=== PATIENT | female | born 1950 | race Caucasian/White ===

== ENCOUNTER 2016-10-31 20:12 | Emergency (ER) | payer MEDICARE, OTHER ==
[~2016-10-31] VITALS: Ht 157.5 cm; Wt 72.7 kg
[~2016-10-31 20:12] MED LIST: AMLO5TAB2 PO; ASPI-628 PO; ATEN25TA PO; CALC-696 PO; CHOL400T PO; CYAN500 PO; GABA100C PO; HYDR-4003 PO; NITR0.4T6 SL; OXYB5TAB10 PO; SIMV20TA4 PO; ZOLP5TAB6 PO
[2016-10-31 20:20] VITALS: BP 127/55; PULSE 80; RESP 22; O2SAT 97
[2016-10-31 20:37] LABS: Mean Corpuscular Volume 92 fL (81-100)
[2016-10-31 20:38] LABS: BASOPHILS % (AUTO) 0 % (0-3); EOSINOPHILS % (AUTO) 1 % (0-5); MONOCYTES % (AUTO) 10 % (4-12); Mean Corpuscular Hemoglobin 30.7 pg (27.0-35.0); NEUTROPHILS % (AUTO) 53 % (40-74); Platelet Count 201 bil/L (150-400)
--- NOTE | 2016-10-31 21:06 | ED.REPORT ---
HPI-Chest Pain 40 and Over Date of Service Oct 31, 2016 ED Provider: Justin Hickey MD Pt is a 66 y/o female with a history of hyperlipidemia, hypertension, and esophageal spasms who presents to the ED via EMS c/o pain under her ribs onset this evening. She describes her pain as "aching' and "burning" that does not radiate. Additional symptoms include mild SOB. She denies nausea, vomiting, constipation, dysuria, difficulty urinating, diarrhea, fever, or cough. She ate two hours prior to arrival, and took two nitro without relief in symptoms. Nursing Notes Stated Complaint: RIB PAIN Chief Complaint: Chest Pain Nursing Notes Reviewed: Yes Allergies: Coded Allergies: quinine (Verified Allergy, Unknown, SEVERE RASH, 09/05/15) thimerosal (Verified Allergy, Unknown, RASH, 09/05/15) Scheduled Amlodipine (Amlodipine) 5 Mg Tablet 2.5 MG PO DAILY Aspirin (Aspir 81) 81 Mg Tablet.dr 81 MG PO DAILY Atenolol (Atenolol) 25 Mg Tablet 12.5 MG PO DAILY Calcium Citrate/Vitamin D2 (Erasto-Citrate Plus Vitamin D Tab) 1 Each Tablet 1 EACH PO AM Cholecalciferol (Vitamin D3) (Vitamin D3) 400 Unit Tablet 400 UNIT PO BID Cyanocobalamin (Vitamin B12) 500 Mcg Tablet 1,000 MCG PO DAILY Gabapentin (Neurontin) 100 Mg Capsule 100 MG PO DAILY 1 pill by mouth daily 3 days then 1 pill by mouth twice a day 3 days then 1 pill by mouth 3 times a day Oxybutynin Chloride (Oxybutynin Chloride) 5 Mg Tablet 5 MG PO BID Simvastatin (Simvastatin) 20 Mg Tablet 20 MG PO HS Scheduled PRN Hydrocodone-Acetaminophen 5-325 mg (Hydrocodone-Acetaminophen 5-325 mg) 1 Each Tablet 1-2 EACH PO Q4 PRN PRN For Pain Nitroglycerin SL (Nitroglycerin SL) 0.4 Mg Tab.subl 0.4 MG SL PRN PRN PRN For Chest Pain Zolpidem (Zolpidem) 5 Mg Tablet 10 MG PO HS PRN PRN For Insomnia General Time Seen by : 20:28 Chief Complaint Other (Rib pain) Hx Obtained From: Patient Arrived By: Ambulance Sudden in Onset?: Yes Onset Occurred: 1 - 4 hours ago Symptom Duration: Constant Quality: Aching, Burning Radiation: : Does not radiate Severity: Current: Mild Severity: Maximum: Moderate Recent Healthcare: No recent hospitalization, Recent doctor visit Similar Sx Previous: No Risk Factors )( CAD Risk Stratification Hyperlipidemia Hypertension Risk factors reviewed )( TAD Risk Stratification Hypertension Risk factors reviewed )( PE Risk Stratification Risk factors reviewed, No risk factors Past Medical History Past Medical History Esophageal spasms Kidney stones Reports: Hyperlipidemia, Hypertension Past Surgical History kidney stone removal Reports: Cholecystectomy, Hysterectomy Family History non-contributory Smoking History Former Smoker Social History Alcohol Use: Denies alcohol use Drug Use: Denies drug use Other Social History: Good social support Ambulatory Status Independent Review of Systems Pain under ribs No difficulty urinating Constitutional: Denies: Fever Respiratory: Reports: Shortness of breath (mild), Denies: Non-productive cough, Prod cough, clear GI: Denies: Constipation, Diarrhea, Nausea, Vomiting Complete sys rev & neg: except as marked. Female: Denies: Dysuria Physical Exam Initial Vital Signs Vital Signs (First) Date Time Temp Pulse Resp B/P Pulse Ox O2 Delivery O2 Flow Rate FiO2 10/31/16 20:20 36.7 80 22 127/55 97 Room Air Initial VS: Reviewed Head / Eyes: Atraumatic, Normocephalic Neck: Supple, Full range of motion Extremities: Vascular intact, Neuro intact, No swelling, No tenderness Skin: Warm, Dry, No cyanosis Neurologic: Alert, Oriented, Nonfocal Psychiatric: Mood/affect normal, Behavior normal, Normal thought content General/Constitutional: Awake, Alert Respiratory / Chest: Atraumatic, Breath sounds NL, Breath sounds = bilat, No respiratory distress Cardiovascular: Heart rate NL, Regular rhythm, Heart sounds NL Abdomen: Soft, Non-tender Interpretation & Diagnostics Lab Results Interpretation Result Diagram: 10/31/16203010/31/162030 Test 10/31/16 20:31 White Blood Count 6.8th/mm3 (3.8-10.1) Red Blood Count 3.61mil/mm3 (3.90-5.20) Hemoglobin 11.1g/dL (12.0-15.6) Hematocrit 33.1% (35.0-46.0) Mean Corpuscular Volume 92fL (81-100) Mean Corpuscular Hemoglobin 30.7pg (27.0-35.0) Mean Corpuscular Hemoglobin Concent 33.5% (32.0-37.0) Red Cell Distribution Width 14.1% (12.3-15.4) Platelet Count 201bil/L (150-400) Neutrophils (%) (Auto) 53% (40-74) Lymphocytes (%) (Auto) 33% (14-46) Monocytes (%) (Auto) 10% (4-12) Eosinophils (%) (Auto) 1% (0-5) Basophils (%) (Auto) 0% (0-3) Sodium Level 141mEq/L (134-144) Potassium Level 3.9mEq/L (3.5-5.2) Chloride Level 106mEq/L (97-108) Carbon Dioxide Level 19mmol/L (18-29) Blood Urea Nitrogen 28mg/dL (8-27) Creatinine 0.97mg/dL (0.57-1.00) Estimat Glomerular Filtration Rate 82mL/min (>59) Glucose Level 125mg/dL (60-99) Calcium Level 9.1mg/dL (8.5-10.1) Magnesium Level 2.0mg/dL (1.6-2.6) Total Bilirubin 0.2mg/dL (0.0-1.2) Aspartate Amino Transf (AST/SGOT) 23U/L (0-50) Alanine Aminotransferase (ALT/SGPT) 16U/L (0-32) Alkaline Phosphatase 112U/L (25-165) Troponin T < 0.010ug/L (0.0-0.011) Total Protein 6.7g/dL (6.4-8.4) Albumin 3.9g/dL (3.4-5.0) ECG Interpretation ECG Interpretation: Sinus rhythm, rate 82 Time: 20:42 Interpreted by: ED physician X-Ray Chest Interpretation Chest Xray Interpretation: IMPRESSION: No radiographic evidence of acute cardiopulmonary pathology. Dictated by: Jorgito Butt M.D. on 10/31/2016 at 21:39 Approved by: Jorgito Butt M.D. on 10/31/2016 at 21:40 View: Portable, 1 view Interpretation / Wet Read by: Interpret - Radiologist Re-Eval/Medical Decision Source of Hx: Old records Time of Eval: 22:29 Patient Status: Condition improved Re-Evaluation/Progress Note: Patient rechecked. Discussed plan for discharge. Patient understands and agrees with plan. F/U instructions and RTER warnings given. All questions addressed at this time. Counseled Regarding: Diagnosis, Lab results, Need for follow-up, When/why to return to ED Discharge & Departure Primary Impression: Acute abdominal pain Disposition: Home Discharge Condition All VS Reviewed: Yes Condition: Stable Patient Instructions: Abdominal Pain (ED) Additional Instructions: No dangerous cause for your symptoms is discovered tonight. Laboratory data is reassuring. Your vital signs are normal and your examination is also reassuring. I recommend follow-up in 2 or 3 days if your symptoms persist. In the meantime, take Tylenol or ibuprofen as needed for pain. Return to the emergency Department right away for pain out of control, jaundice, fever or other new or worrisome symptoms. Referrals: Marjorie Harmon MD (PCP) Scribe Attestation Portions of this note were transcribed by Heidy Colin. I, Dr. Hickey, personally performed the history, physical exam and medical decision-making; I reviewed and confirmed the accuracy of the information in the transcribed note. copies to: Marjorie Harmon MD, Kirk H MD Oct 31, 2016 21:06 Heidy Colin Oct 31, 2016 21:25
[2016-10-31 21:07] LABS: TROPONIN T < 0.010 ug/L (0.0-0.011)
--- NOTE | 2016-10-31 21:42 | DRSVH ---
PROCEDURE: X-RAY CHEST ONE VIEW, PORTABLE ([id number]) INDICATIONS: cp TECHNIQUE: One view of the chest was acquired. COMPARISON: None. FINDINGS: Surgical changes and devices: Right upper quadrant surgical clips. Lungs and pleura: No pleural effusions or pneumothorax. Lungs are clear. Mediastinum: Mediastinal contours appear normal. Heart size is normal. Bones and chest wall: No suspicious bony lesions. Overlying soft tissues appear unremarkable. IMPRESSION: No radiographic evidence of acute cardiopulmonary pathology. Dictated by: Jorgito Butt M.D. on 10/31/2016 at 21:39 Approved by: Jorgito Butt M.D. on 10/31/2016 at 21:40
[2016-10-31 22:34] VITALS: BP 120/53; PULSE 74; RESP 16; O2SAT 96
== END 2016-10-31 22:30 | disposition home or self-care (01) ==
LOC: SED 20:12 → EDBD 20:12 → SED 22:30
DX: R10.9 Unspecified abdominal pain (principal); I10 Essential (primary) hypertension; E78.5 Hyperlipidemia, unspecified; Z87.891 Personal history of nicotine dependence; Z79.82 Long term (current) use of aspirin; Z88.8 Allergy status to other drugs, medicaments and biological substances

== ENCOUNTER 2016-11-23 06:13 | Emergency (ER) | payer MEDICARE, OTHER ==
[~2016-11-23] VITALS: Ht 157.5 cm; Wt 72.7 kg
[~2016-11-23 06:13] MED LIST changes: +NITR0.4T38 SL; -NITR0.4T6 SL
[2016-11-23 06:14] VITALS: BP 105/50; PULSE 69; RESP 10; O2SAT 97
--- NOTE | 2016-11-23 06:19 | ED.REPORT ---
HPI-Chest Pain 40 and Over Date of Service Nov 23, 2016 ED Provider: Justin Hickey MD Mahnaz Crow is a 66-year-old female with a history of esophageal spasm and GERD is here for right sided chest/epigastric pain that radiates down to her right side. Pain started 30 minutes is sharp in nature. She has had this type of pain in the past relieved by nitroglycerin. Before arriving to the ED she took 2 nitroglycerin and the pain is still there. The pain does not change with movement. Associated symptoms of nausea. She denies any fevers or chills, vision changes, jaw pain, diaphoresis, headache, abdominal pain, diarrhea, or dysuria. Patient notes that she had a UTI 2 weeks ago treated with antibiotics. Nursing Notes Stated Complaint: SHARP CHEST PAIN Chief Complaint: Chest Pain Allergies: Coded Allergies: quinine (Verified Allergy, Unknown, SEVERE RASH, 09/05/15) thimerosal (Verified Allergy, Unknown, RASH, 09/05/15) Scheduled Amlodipine (Amlodipine) 5 Mg Tablet 2.5 MG PO DAILY Aspirin (Aspir 81) 81 Mg Tablet.dr 81 MG PO DAILY Atenolol (Atenolol) 25 Mg Tablet 12.5 MG PO DAILY Calcium Citrate/Vitamin D2 (Erasto-Citrate Plus Vitamin D Tab) 1 Each Tablet 1 EACH PO AM Cholecalciferol (Vitamin D3) (Vitamin D3) 400 Unit Tablet 400 UNIT PO BID Cyanocobalamin (Vitamin B12) 500 Mcg Tablet 1,000 MCG PO DAILY Gabapentin (Neurontin) 100 Mg Capsule 100 MG PO DAILY 1 pill by mouth daily 3 days then 1 pill by mouth twice a day 3 days then 1 pill by mouth 3 times a day Oxybutynin Chloride (Oxybutynin Chloride) 5 Mg Tablet 5 MG PO BID Simvastatin (Simvastatin) 20 Mg Tablet 20 MG PO HS Scheduled PRN Hydrocodone-Acetaminophen 5-325 mg (Hydrocodone-Acetaminophen 5-325 mg) 1 Each Tablet 1-2 EACH PO Q4 PRN PRN For Pain Nitroglycerin SL (Nitroglycerin SL) 0.4 Mg Tab.subl 0.4 MG SL PRN PRN PRN For Chest Pain Zolpidem (Zolpidem) 5 Mg Tablet 10 MG PO HS PRN PRN For Insomnia General Time Seen by MD: 06:14 Chief Complaint Chest pain (right-sided chest/epigastric pain) Hx Obtained From: Patient Arrived By: Ambulance Sudden in Onset?: Yes Onset Occurred: 16 - 30 minutes ago Context of Onset: At rest, Other (cracking eggs) Symptom Duration: Constant Location: : Chest right: Epigastric Quality: Sharp Radiation: : Abdomen (right side) Migration/Movement: Reports: None Severity: Current: Pain level 6 out of 10 Severity: Maximum: Pain level 8 out of 10 Associated with: Reports: Nausea, Denies: Diaphoresis, Fever, Palpitations, Shortness of Breath, Syncope, Vomiting Risk Factors )( CAD Risk Stratification Hypertension HEART Score HEART for MACE: Low index of susp (0), Normal ECG (0), Age 65 or over (2), 1-2 CAD risk factors (1), < or = to NL troponin (0) Well's Criteria for PE Well's PE Score: 0-2 pts (low risk 3.6%) Past Medical History Past Medical History Notes: Esophageal spasm GERD Past Medical History Esophageal spasms Kidney stones Reports: Hyperlipidemia, Hypertension Past Surgical History kidney stone removal Reports: Cataract surgery, Cholecystectomy, Hysterectomy Family History Father from [place] at the age of 72 Mother from [place] at the age of 71 Smoking History Former Smoker Social History Alcohol Use: Denies alcohol use Drug Use: Denies drug use Other Social History: Good social support Ambulatory Status Independent Review of Systems Basic Review of Systems Eyes: Vision NL ENT: No pain, No nasal congestion : No dysuria Constitutional: Denies: Chills, Fever Respiratory: Denies: Shortness of breath, Wheezing Cardiovascular: Reports: Chest pain, Denies: Palpitations GI: Reports: Nausea, Denies: Abdominal pain, Diarrhea, Vomiting Musculoskeletal: Denies: Joint pain, Joint swelling Skin: Denies Diaphoresis Neurologic: Denies: Abnormal movement, Bladder dysfunction, Bowel dysfunction, Change LOC, Headache, Vision change Complete sys rev & neg: except as marked. Physical Exam Initial Vital Signs Vital Signs (First) Date Time Temp Pulse Resp B/P Pulse Ox O2 Delivery O2 Flow Rate FiO2 11/23/16 06:14 36.7 69 10 105/50 97 Room Air Head / Eyes: Atraumatic, Normocephalic, PERRL ENT: Mucous membranes moist, Conjunctiva normal, No scleral icterus Neck: Supple, Non-tender, Full range of motion Back: No CVA tenderness Lymphatic: No lymphadenopathy Extremities: Vascular intact, Neuro intact, No swelling, No tenderness Skin: Warm, Dry, No cyanosis Neurologic: Alert, Oriented, Nonfocal General/Constitutional: Awake, Alert, No acute distress, Well appearing Respiratory / Chest: Breath sounds NL, Breath sounds = bilat, No respiratory distress, No rales, No rhonchi, No wheezing, No stridor, No chest tenderness Cardiovascular: Heart rate NL, Regular rhythm, Heart sounds NL, No murmurs, Peripheral circulation NL, Pulses = bilaterally, No gross BP differential Abdomen: Soft, Non-tender, No guarding, No rebound, No distention, No hernia, No palpable mass, No pulsatile mass Interpretation & Diagnostics Lab Results Interpretation Result Diagram: 11/23/16 0740 11/23/16 0731 Test 11/23/16 07:31 11/23/16 07:40 Sodium Level 141mEq/L (134-144) Potassium Level 4.0mEq/L (3.5-5.2) Chloride Level 105mEq/L (97-108) Carbon Dioxide Level 21mmol/L (18-29) Blood Urea Nitrogen 22mg/dL (8-27) Creatinine 0.81mg/dL (0.57-1.00) Estimat Glomerular Filtration Rate 101mL/min (>59) Glucose Level 103mg/dL (60-99) Calcium Level 9.1mg/dL (8.5-10.1) Total Bilirubin 0.3mg/dL (0.0-1.2) Aspartate Amino Transf (AST/SGOT) 22U/L (0-50) Alanine Aminotransferase (ALT/SGPT) 13U/L (0-32) Alkaline Phosphatase 111U/L (25-165) Troponin T 0.010ug/L (0.0-0.011) Total Protein 6.9g/dL (6.4-8.4) Albumin 3.8g/dL (3.4-5.0) White Blood Count 5.7th/mm3 (3.8-10.1) Red Blood Count 3.76mil/mm3 (3.90-5.20) Hemoglobin 11.6g/dL (12.0-15.6) Hematocrit 34.3% (35.0-46.0) Mean Corpuscular Volume 91.2fL (81-100) Mean Corpuscular Hemoglobin 30.9pg (27.0-35.0) Mean Corpuscular Hemoglobin Concent 33.8% (32.0-37.0) Red Cell Distribution Width 13.7% (12.3-15.4) Platelet Count 169bil/L (150-400) Neutrophils (%) (Auto) 75.9% (40-74) Lymphocytes (%) (Auto) 12.0% (14-46) Monocytes (%) (Auto) 8.6% (4-12) Eosinophils (%) (Auto) 2.8% (0-5) Basophils (%) (Auto) 0.5% (0-3) D-Dimer 0.66mg/L FEU (<0.50) CT Chest Interpretation Image quality: Excellent. Pulmonary arteries: Pulmonary arteries are normal in size, and demonstrate no intraluminal filling defects to suggest central pulmonary embolism. Lungs and pleura: Lungs are clear. No pleural effusions or pneumothorax. Central and peripheral airways are patent. Mediastinum: Heart size is normal, without pericardial effusion. No mediastinal or hilar adenopathy. Thoracic aorta is normal in caliber and enhancement. Atherosclerotic calcification is noted. Esophagus is normal in caliber, without hiatal hernia. However, wall thickening is seen throughout the esophagus Bones and chest wall: No suspicious bony lesions. Ribs and thoracic spine appear intact throughout. Thyroid gland demonstrates no significant CT abnormality. No axillary or supraclavicular adenopathy. Abdomen: Cholecystectomy clips are seen. Visualized upper abdominal solid organs appear normal in the early arterial phase of enhancement. IMPRESSION: Negative for pulmonary embolism. Wall thickening is seen throughout the esophagus. Please correlate with esophagitis. Re-Eval/Medical Decision Med Decision/Clinical Course Patient has atypical right-sided chest pain lasting over an hour. Even though her heart score risk was low, she had other cardiovascular risk factors such as age, former smoking history, family history of both parents at the age of 71 and 72 due to [place]. We ordered an EKG and troponins which were normal. Chest x-ray was within normal limits with no signs of aortic dissection or tension pneumothorax. Patient does self reports that she had a recent nuclear stress test which was normal. No formal diagnosis for her chest pain we ordered a d-dimer to rule out PE. Her d-dimer was slightly elevated, for definitive rule out we ordered a chest CT Discharge & Departure Primary Impression: Chest pain Chest pain type: other chest pain Qualified Code: R07.89 - Other chest pain Disposition: Home Discharge Condition All VS Reviewed: Yes Condition: Stable Patient Instructions: Chest Pain (ED), Esophageal Spasm (ED) Additional Instructions: Follow-up with your PCP in the coming days to discuss the need for further evaluation. If you are experiencing worsening symptoms of shortness of breath with exertion, dyspnea with exertion, sweating, numbness and tingling down the arms, jaw pain, indigestion with chest pain but does not go away with rest. Go to the ED Referrals: Marjorie Harmon MD (PCP) Attending Statement The patient was seen and examined together with Dr. Holt on 11/23/16 and I agree with the history, exam and plan as outlined in the note above. Haylee Holt DO Nov 23, 2016 06:19 Justin Hickey MD Nov 23, 2016 07:16
[2016-11-23 07:35] VITALS: BP 103/45; PULSE 62; RESP 14; O2SAT 96
[2016-11-23 07:46] LABS: TROPONIN T 0.01 ug/L (0.0-0.011)
[2016-11-23 07:47] LABS: BASOPHILS % (AUTO) 0.5 % (0-3); EOSINOPHILS % (AUTO) 2.8 % (0-5); MONOCYTES % (AUTO) 8.6 % (4-12); Mean Corpuscular Hemoglobin 30.9 pg (27.0-35.0); Mean Corpuscular Volume 91.2 fL (81-100); NEUTROPHILS % (AUTO) 75.9 % (40-74); Platelet Count 169 bil/L (150-400)
--- NOTE | 2016-11-23 08:25 | DRSVH ---
PROCEDURE: X-RAY CHEST ONE VIEW, PORTABLE ([id number]) INDICATIONS: pain TECHNIQUE: One view of the chest was acquired. COMPARISON: [facility], CT, CT ABD PELVIS W CON, 09/05/2015, 20:01. [facility], CR, CHEST 1VW (PORTABLE), 06/03/2013, 1:26. [facility], CR, CHEST 1VW (PORTABLE), 5/0 04/2013, 13:40. [facility], CR, CHEST 2VW, 06/21/2013, 16:15. [facility], CR, XR CHEST 1VW (PORTABLE), 10/31/2016, 21:06. FINDINGS: Surgical changes and devices: Monitoring leads are seen overlying the chest. Cholecystectomy clips are seen. Lungs and pleura: No pleural effusions or pneumothorax. Lungs are clear. Mediastinum: Mediastinal contours appear normal. Heart size is normal. Bones and chest wall: Age-appropriate bony degenerative changes are seen. No suspicious bony lesio ns. Overlying soft tissues appear unremarkable. IMPRESSION: Portable chest within normal limits. Dictated by: Keegan Atkins M.D. on 11/23/2016 at 8:22 Approved by: Keegan Atkins M.D. on 11/23/2016 at 8:24
[2016-11-23 09:17] VITALS: BP 118/42; PULSE 62; RESP 14; O2SAT 95
[2016-11-23 10:29] VITALS: BP 133/56; RESP 15; O2SAT 98
--- NOTE | 2016-11-23 12:13 | DRSVH ---
PROCEDURE: CT ANGIO CHEST PULMONARY EMBOLISM ([id number]) INDICATIONS: chest pain TECHNIQUE: After the administration of intravenous contrast, 2 mm thick sections acquired from the pulmonary api dain to the posterior costophrenic angles. 3-dimensional maximum intensity projection (MIP) coronal a nd sagittal reformats were then acquired through the thorax. For radiation dose reduction, the follo wing was used: automated exposure control, adjustment of mA and/or kV according to patient size. COMPARISON: [facility], CR, XR CHEST 1VW (PORTABLE), 10/31/2016, 21:06. [facility], CR, XR CHEST 1VW (PORTABLE), 11/23/2016, 7:24. FINDINGS: Image quality: Excellent. Pulmonary arteries: Pulmonary arteries are normal in size, and demonstrate no intraluminal filling d efects to suggest central pulmonary embolism. Lungs and pleura: Lungs are clear. No pleural effusions or pneumothorax. Central and peripheral ai rways are patent. Mediastinum: Heart size is normal, without pericardial effusion. No mediastinal or hilar adenopathy . Thoracic aorta is normal in caliber and enhancement. Atherosclerotic calcification is noted. Eso phagus is normal in caliber, without hiatal hernia. However, wall thickening is seen throughout the esophagus Bones and chest wall: No suspicious bony lesions. Ribs and thoracic spine appear intact throughout. Thyroid gland demonstrates no significant CT abnormality. No axillary or supraclavicular adenopath y. Abdomen: Cholecystectomy clips are seen. Visualized upper abdominal solid organs appear normal in t he early arterial phase of enhancement. IMPRESSION: Negative for pulmonary embolism. Wall thickening is seen throughout the esophagus. Please correlate with esophagitis. Incidental note is made of: Cholecystectomy clips Dictated by: Keegan Atkins M.D. on 11/23/2016 at 12:10 Approved by: Keegan Atkins M.D. on 11/23/2016 at 12:12
[2016-11-23 12:38] VITALS: BP 140/60; RESP 17; O2SAT 97
== END 2016-11-23 12:58 | disposition home or self-care (01) ==
LOC: SED 06:13
DX: R07.89 Other chest pain (principal); R11.0 Nausea; I10 Essential (primary) hypertension; K21.9 Gastro-esophageal reflux disease without esophagitis; E78.5 Hyperlipidemia, unspecified; Z90.710 Acquired absence of both cervix and uterus; Z79.82 Long term (current) use of aspirin; Z87.891 Personal history of nicotine dependence; Z87.442 Personal history of urinary calculi; Z88.8 Allergy status to other drugs, medicaments and biological substances
CPT/HCPCS: 36415; 71010; 71275; 80053; 84484; 85025; 85378; 93005; 99285; Q9967